=== PATIENT | male | born 1945 | race Caucasian/White ===

== ENCOUNTER → 2023-05-09 10:17 | Outpatient (REF) | payer OTHER, SELFPAY | LOC: HWRAD 10:17 | PROVIDERS: ATTENDING PHYSICIAN Specialist; FAMILY PHYSICIAN Internal Medicine | DX: N20.0 Calculus of kidney (principal) | CPT/HCPCS: 74176 ==

== ENCOUNTER → 2023-11-18 08:15 | Outpatient (REF) | payer OTHER, SELFPAY | LOC: MRI 3T 08:15 | PROVIDERS: ATTENDING PHYSICIAN Specialist; FAMILY PHYSICIAN Internal Medicine | DX: C61 Malignant neoplasm of prostate (principal) | CPT/HCPCS: 72197; A9575 ==

== ENCOUNTER 2024-12-11 06:25 | Day surgery (SDC) | payer OTHER, SELFPAY | END 2024-12-11 13:25 | disposition home or self-care (01) | LOC: GI 06:25 | PROVIDERS: ATTENDING PHYSICIAN Internal Medicine Gastroenterology | DX: C7A.010 Malignant carcinoid tumor of the duodenum (principal); K22.2 Esophageal obstruction; R13.10 Dysphagia, unspecified | CPT/HCPCS: 43249; 43239; 88305; 88341; 88342 ==

== ENCOUNTER → 2024-12-18 15:17 | Outpatient (REF) | payer OTHER, SELFPAY | LOC: RAD 15:17 | PROVIDERS: ATTENDING PHYSICIAN Internal Medicine Gastroenterology; FAMILY PHYSICIAN Internal Medicine | DX: K31.89 Other diseases of stomach and duodenum (principal) | CPT/HCPCS: 74177; Q9967 ==

== ENCOUNTER 2025-03-04 18:49 | Emergency (ER) | payer OTHER, SELFPAY ==
[2025-03-04 18:52] VITALS: BMI 28.4
[2025-03-04 19:10] LABS: Hematocrit 25.9 % (39.0-52.0); Hemoglobin 8.9 g/dL (13.0-18.0); Mean Corp Hgb Conc. 34.4 g/dL (33.0-37.0); Mean Corpuscular Volume 82.5 fL (80.0-94.0); Nucleated Red Blood Cells % 0 % (-); Platelet Count 333 10^3/uL (130-400); Red Cell Dist. Width 14.3 % (11.5-14.5)
[2025-03-04 19:12] VITALS: BP 158/54
[2025-03-04 19:24] LABS: ALT (SGPT) 25 U/L (0-50); AST (SGOT) 22 U/L (17-59); Albumin 2.9 g/dl (3.5-5.0); Alkaline Phosphatase 83 U/L (38-126); Blood Urea Nitrogen 23 mg/dl (9-20); Calcium 8.1 mg/dl (8.4-10.2); Carbon Dioxide 25 mmol/L (22-30); Chloride 99 mmol/L (98-107); Estimated Creatinine Clearance 89 ml/min; Glucose 120 mg/dl (70-99); Potassium 3.9 mmol/L (3.5-5.1); Sodium 127 mmol/L (135-145); Total Protein 5.7 g/dl (6.3-8.2); eGFR > 60.00
--- NOTE | 2025-03-04 19:26 | ED.GENMED ---
History of Present Illness
General
Chief Complaint: Post Operative Problem(s)
Source: patient, records, spouse and family
Exam Limitations: none
Time Seen by Provider: 03/04/25 19:06
Nursing documentation reviewed up to this point in time: agreed with
History of Present Illness
History of Present Illness:
Note:
CHIEF COMPLAINT(S)
Fever
HISTORY OF PRESENT ILLNESS
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 Postoperatively, the patients spouse noticed a fever. The spouse reports that 'everything was
going good' until the fever started. The patient denies experiencing any vomiting, pain, cough, or urinary issues. He also notes that a previous surgical drain has been removed. The patient was discharged on March 01. Currently, the patients
temperature is elevated at 103 degrees Fahrenheit, and he exhibits tachycardia. He remains oriented, able to recognize family members and recall recent events.
PAST MEDICAL AND SURIGICAL HISTORY
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
ADDITIONAL HISTORY OBTAINED FROM SOURCES OTHER THAN THE PATIENT
Per the spouse, the patient developed a fever post-discharge. The spouse attempted to contact the surgeons office multiple times but was unable to reach them and considered driving the patient to the hospital.
PHYSICAL EXAM
General: Alert, no acute distress.
Skin: Warm, dry.
Head: Normocephalic, atraumatic.
Neck: Supple, trachea midline.
Eye, Ears, Nose, Mouth and Throat: Oral mucosa moist.
Cardiovascular: Tachycardia, normal peripheral perfusion, no edema.
Respiratory: Respirations are non-labored.
Gastrointestinal: Abdomen nondistended, vertical midline surgical incision clean, dry, intact, lower quadrant laparotomy incision clean, dry, and intact, healing.
Back: Normal range of motion, normal alignment.
Musculoskeletal: Normal range of motion, normal strength.
Neurological: Alert and oriented to person, place, time, and situation, no focal neurological deficit observed.
Psychiatric: Cooperative, appropriate mood & affect.
PROBLEM LIST
Acute:
- Fever
Chronic:
- Postoperative status following Whipple procedure
PLAN
Check for the source of fever, contact the surgical team at the [facility] for further management guidance.
DIFFERENTIAL DIAGNOSIS
The Differential Diagnosis includes, in no particular order and is not limited to:
- Post-surgical infection
- Atelectasis
- Pneumonia
- Deep vein thrombosis
- Urinary tract infection
- Biliary leak
- Pancreatitis
- Drug-induced fever
- Gastrointestinal tract infection
CARE-UPDATE
03/04/25 - 20:49
Patient has been accepted for transfer to the [facility]. Transfer arrangements are in progress.
Patient to be transferred to [facility] under Dr. Butler's care for further evaluation of postoperative fever. Initial CT scan of abdomen and pelvis completed, awaiting full analysis post-transfer. Negative amylase and lipase levels
reduce the likelihood of an anastomotic leak as the cause of fever.
EKG
My independent EKG interpretation is:
- Rhythm: Sinus tachycardia
- Heart Rate: 105 bpm
- ST Segment: Non-specific ST depression abnormality
- Glen: Normal
- ME Interval: Normal
- QRS Duration: Normal
Disposition:
SUMMARY OF ENCOUNTER
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 The current episode is 10 days post-surgery, with an elevated
temperature of 103 degrees Fahrenheit and tachycardia. In consultation with the oncologic surgery team at the [facility], he was administered piperacillin-tazobactam (20 g per 24 hours) and vancomycin.
DISPOSITION
Transfer to [facility] for further care under their surgical team.
ASSESSMENT
Post-operative fever, status post-Whipple procedure.
MANAGEMENT OF THE PATIENTS CARE WAS DISCUSSED WITH
Management discussed with the oncologic surgery team at the [facility].
PLAN
Transfer to the [facility] for further evaluation and management of post-operative complications including fever.
INDEPENDENT REVIEW OF LABS AND INTERPRETATION OF TESTS
My independent EKG interpretation is Rhythm: Sinus tachycardia, Heart Rate: 105 bpm, ST Segment: Non-specific ST depression abnormality, Glen: Normal, ME Interval: Normal, QRS Duration: Normal.
MEDICATION RECONCILIATION
Administered piperacillin-tazobactam and vancomycin prior to transfer.
MEDICAL DECISION MAKING
Chronic conditions affecting care: Postoperative status following Whipple procedure.
-Complexity of Data Reviewed:
The Differential Diagnosis includes:
- Post-surgical infection
- Atelectasis
- Pneumonia
- Deep vein thrombosis
- Urinary tract infection
- Biliary leak
- Pancreatitis
- Drug-induced fever
- Gastrointestinal tract infection
-Data:
Category 1:
Clinical information was obtained from an independent historian.
Category 3:
Discussion of management with the oncologic surgery team at the [facility].
-Risk:
Prescription medication was administered, including piperacillin-tazobactam and vancomycin.
DIAGNOSIS
Post-operative fever, ICD-10: R50.9
Past History
Past History
ED Past Medical History: CAD and Cancer
ED Past Surgical History: Cardiac and Cholecystectomy
Social History
Tobacco: Former smoker
Alcohol: Occasional
Drug: None
Personal:
Living: with family
Phy Exam
Physical Exam
Physical Exam:
.
Sepsis
Sepsis Screening
Sepsis Assessment: Sepsis
Sepsis Screen
Sepsis Screen: Sepsis
Date: 03/05/25
Time: 00:28
Course
Orders/Labs/Results
Orders:
Orders
03/04/25 18:56
EKG [Electrocardiogram (*1)] Urgent
Reason for Study: Abdominal Pain
EKG- Treatment ONCE
03/04/25 19:01
Amylase Urgent
Comment: ADD ON
Complete Blood Count/With Diff Urgent
Comprehensive Metabolic Panel Urgent
Lactic Acid Urgent
Lipase Urgent
Comment: ADD ON
Blood Culture Q30M
TORIBIO Source: Blood/Venous
Specimen Description:
Blood Culture Q30M
TORIBIO Source: Blood/Venous
Specimen Description:
03/04/25 19:22
Iohexol [Omnipaque] See Protocol PO NOW STA
03/04/25 19:23
CT Abd/pel W Iv And Oral Contr Urgent
Comment:
Reason For Exam: fever, s/p Whipple 10d ago
03/04/25 19:34
Add On- LAB Urgent
Tests Added?: lipase, amylase
03/04/25 19:35
Piperacillin/Tazo 4.5 Gram [Zosyn] 4.5 gram in 100 ml IV NOW
03/04/25 19:37
Lactated Ringers [Lr] 1,000 ml IV BOLUS
03/04/25 19:49
Vancomycin [Vancocin] 2,000 mg 0.9% Sodium Chloride 500 ml [Nss] 500 ml IV NOW
Abnormal Lab Results
03/04/25
19:01
WBC 18.2 H 10^3/uL
(4.8-10.8)
RBC 3.14 L 10^6/uL
(4.70-6.10)
Hgb 8.9 L g/dL
(13.0-18.0)
Hct 25.9 L %
(39.0-52.0)
MPV 10.5 H fL
(7.4-10.4)
Abs Immat Gran (auto) 0.2 H 10^3/uL
(0-0.05)
Absolute Neuts (auto) 16.3 H 10^3/uL
(1.4-6.5)
Absolute Lymphs (auto) 0.6 L 10^3/uL
(1.2-3.4)
Absolute Monos (auto) 1.2 H 10^3/uL
(0.1-0.6)
Immature Gran % 0.8 H %
(0-0.5)
Neutrophils % 89.4 H %
(42.2-75.2)
Lymphocytes % 3.0 L %
(20.5-51.1)
Sodium 127 L mmol/L
(135-145)
BUN 23 H mg/dl
(9-20)
Glucose 120 H mg/dl
(70-99)
Calcium 8.1 L mg/dl
(8.4-10.2)
Total Protein 5.7 L g/dl
(6.3-8.2)
Albumin 2.9 L g/dl
(3.5-5.0)
03/04/25 19:01
03/04/25 19:01
Vital Signs
Initial and Last Documented VS:
Initial Vital Signs
Temp
103 F H
03/04/25 18:52
Last Documented Vital Signs
Temp Pulse Resp BP Pulse Ox
100 F 95 24 141/51 97
03/04/25 21:01 03/04/25 20:30 03/04/25 20:30 03/04/25 20:00 03/04/25 20:30
*Pulse Oximetry
Patient hypoxic: no
*Critical Care Note
Total Time (30-74mins, 75-104mins- exclusive of procedures): 30 (Critical care statement: A total of 30 minutes of critical care time was provided for this patient. This includes management of unstable vital signs, evaluation of the patient at
bedside, reviewing the patient's pertinent medical records, discussion with consultants, review of old EKGs and review of)
ED Attending Note
-
Portions of this chart may have been created with voice recognition software.� Occasional wrong word or��sound alike� substitutions may have occurred due to the inherent limitations of voice recognition software.
Discharge Plan
Departure
Patient Disposition: [facility]
Date of Disposition: 03/04/25
Time of Disposition: 19:35
Patient with high blood pressure during this ER visit?: Yes
Condition: Fair
Discharge Problem:
Postoperative fever
Prescriptions:
No Action
aspirin 81 mg Tablet,Delayed Release (Dr/Ec)
81 mg PO DAILY
metoprolol succinate [Toprol XL] 25 mg Tablet Extended Release 24 Hr
25 mg PO DAILY
rosuvastatin 10 MG tablet
10 mg PO QPM
finasteride 5 MG tablet
5 mg PO DAILY
sennosides [senna] 8.6 mg Tablet
8.6 mg PO BID
amlodipine [Norvasc] 5 mg Tablet
5 mg PO DAILY
acetaminophen [Tylenol Extra Strength] 500 mg Tablet
1,000 mg PO Q6HPRN PRN (Reason: mild pain)
oxycodone 5 mg Tablet
5 mg PO Q6HPRN PRN (Reason: severe pain)
enoxaparin [Lovenox] 40 mg/0.4 mL Syringe
40 mg SC QPM
lubiprostone 24 mcg Capsule
24 mcg PO DAILY
Referrals:
Rashid Magana I., DO [Family Provider, Internal Medicine]
Hospital Transfer
Other hospital: [facility]
I certify that the patient requires transfer: Yes
Discussed case with accepting physician: Carrie
Reason for transfer: higher level of care, availability of service and specialties available
Interventions
Interventions:
*Risk Screen - Suicide Last Done: 03/04/25 18:52
*General Assessment Last Done: 03/04/25 18:52
*Neglect/Abuse Screening Last Done: 03/04/25 18:52
*ED COVID-19 Vaccine History Last Done: 03/04/25 18:52
*ED Influenza Vaccine History Last Done: 03/04/25 18:52
[facility] Fall Risk Assessment Tool Last Done: 03/04/25 18:52
*Nursing Disposition Last Done: 03/04/25 20:55
ED-Skin Assessment Last Done: 03/04/25 18:52
Discharge Date and Time
Discharge Date/Time: 03/04/25 21:12
Print Language: RWANDAN
[2025-03-04] MEDS: OMNIPAQUE 50 ML PO (19:36)
[2025-03-04 19:53] LABS: Amylase 39 U/L (30-110); Lipase 66 U/L (23-300)
[2025-03-04] MEDS: ZOSYN 100 IV (19:56)
[2025-03-04] MEDS: LR 1000 IV (19:56)
[2025-03-04 20:00] VITALS: BP 141/51
== END 2025-03-04 21:12 | disposition short-term general hospital (02) ==
LOC: EMR 18:49
PROVIDERS: Emergency Medicine; EMERGENCY PHYSICIAN Emergency Medicine; FAMILY PHYSICIAN Internal Medicine
DX: R50.82 Postprocedural fever (principal); I25.10 Atherosclerotic heart disease of native coronary artery without angina pectoris; D49.0 Neoplasm of unspecified behavior of digestive system; Z87.891 Personal history of nicotine dependence
CPT/HCPCS: 99284; 96365; 74177; 80053; 82150; 83605; 83690; 85025; 87040; 93005; Q9967

== ENCOUNTER 2025-03-18 19:02 | Emergency (ER) | payer OTHER, SELFPAY ==
[2025-03-18 19:06] VITALS: BP 121/57
[2025-03-18 19:31] LABS: Hematocrit 29.1 % (39.0-52.0); Hemoglobin 9.3 g/dL (13.0-18.0); Mean Corp Hgb Conc. 32.0 g/dL (33.0-37.0); Mean Corpuscular Volume 81.3 fL (80.0-94.0); Nucleated Red Blood Cells % 0 % (-); Platelet Count 393 10^3/uL (130-400); Red Cell Dist. Width 14.5 % (11.5-14.5)
[2025-03-18 19:55] LABS: ALT (SGPT) 57 U/L (0-50); AST (SGOT) 34 U/L (17-59); Albumin 3.7 g/dl (3.5-5.0); Alkaline Phosphatase 164 U/L (38-126); Blood Urea Nitrogen 17 mg/dl (9-20); Calcium 9.1 mg/dl (8.4-10.2); Carbon Dioxide 24 mmol/L (22-30); Chloride 98 mmol/L (98-107); Glucose 130 mg/dl (70-99); Potassium 4.3 mmol/L (3.5-5.1); Sodium 131 mmol/L (135-145); Total Protein 7.4 g/dl (6.3-8.2); eGFR > 60.00
[2025-03-18 19:58] LABS: COVID-19 Antigen Negative (Negative)
--- NOTE | 2025-03-18 20:19 | ED.GENMED ---
History of Present Illness
<LUISA Sutton - Last Filed: 03/19/25 08:48>
General
Chief Complaint: Fever
Source: patient
Exam Limitations: none
Time Seen by Provider: 03/18/25 19:57
Nursing documentation reviewed up to this point in time: agreed with
History of Present Illness
History of Present Illness:
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 Patient was seen here March 04 for fever and transferred to [place]. Daughter at bedside reports patient had a full workup and no clear cause of fever was
found. He was on IV antibiotics while in the hospital at [facility] and was discharged on Augmentin. He completed Augmentin on 4 days ago. Patient felt fine earlier today and in fact saw his oncologist Dr. Barnes however around 2 PM daughter
reports patient developed rigors and his temp was 101.8. Daughter gave patient Tylenol at 430 and ibuprofen at 5:30.
She did speak with patient's surgeon Dr. Aubrey Curtis and he recommended that he come here to the ER and also get a CAT scan again with IV contrast.
Patient currently denies any fevers. With his fever he denies any URI symptoms cough nausea vomiting diarrhea. He denies abdominal pain.
Past History
<Rosa Delgado MD - Last Filed: >
Past History
ED Past Medical History: CAD and Cancer
ED Past Surgical History: Cardiac and Cholecystectomy
Social History
Tobacco: Former smoker
Alcohol: Occasional
Drug: None
Personal:
Living: with family
Phy Exam
<LUISA Sutton - Last Filed: 03/19/25 08:48>
General Physical Exam
General Presentation: no apparent distress
General age: appears stated age
General Skin: warm and dry
General Habitus: elderly
General Mental: alert
General Hydration: appears well hydrated
Cardiovascular Exam
Cardiovascular Exam: regular rate/rhythm, no murmur and normal peripheral pulses
Pulmonary Exam
Pulmonary Exam: lungs clear and no respiratory distress
Gastrointestinal Exam
Gastrointestinal Exam: non tender, soft and other (Surgical site healing well without evidence of infection)
Neurological Exam
Neurological Exam: alert and oriented x3
Musculoskeletal Exam
Musculoskeletal Exam: full ROM
Skin Exam
Skin Exam: normal color and warm/dry
Psychiatric Exam
Psychiatric Exam: normal mood/affect
<Harmony St PA-C - Last Filed: 03/19/25 02:41>
Physical Exam
Physical Exam:
.
Sepsis
<LUISA Sutton - Last Filed: 03/19/25 08:48>
Sepsis Screen
Sepsis Screen: Sepsis Ruled Out
Date: 03/19/25
Time: 08:43
<[address] PA-C - Last Filed: 03/19/25 02:41>
Sepsis Screening
Sepsis Assessment: Sepsis Ruled Out
Sepsis Screen
Sepsis Screen: Sepsis Ruled Out
Date: 03/19/25
Time: 02:41
<Rosa Delgado MD - Last Filed: >
Sepsis Screen
Sepsis Screen: Possible Sepsis
Date: 03/18/25
Time: 20:19
Course
<LUISA Sutton - Last Filed: 03/19/25 08:48>
Orders/Labs/Results
Orders:
Orders
03/18/25 19:21
COVID-19 Antigen Urgent
Source: Nasal Swab
Complete Blood Count/With Diff Urgent
Comprehensive Metabolic Panel Urgent
Blood Culture Urgent
TORIBIO Source: Blood/Venous
Specimen Description:
Influenza A+B Rapid Molecular Urgent
TORIBIO Source: Nasal Swab
Specimen Description:
03/18/25 21:06
CT Abd/pelvis W Iv Cont Urgent
Comment:
Reason For Exam: fever s/p whipple
03/18/25 22:30
Blood Culture Q30M
TORIBIO Source: Blood/Venous
Specimen Description:
03/18/25 23:11
Lactic Acid Q4H
Comment: CANCEL 2nd LACTIC ACID IF 1st LACTIC ACID IS LESS THAN 2
UA Reflex to Culture [Urinalysis Reflex To Culture] Urgent
Date Specimen was Collected: 03/18/25
Time Specimen was Collected: 23:08
Urine Microscopic Reflex Cult Urgent
Blood Culture Q30M
TORIBIO Source: Blood/Venous
Specimen Description:
Urine Culture Urgent
TORIBIO Source: U
Specimen Description:
Date Specimen was Collected: 03/18/25
Time Specimen was Collected: 23:08
03/19/25 00:43
Cefuroxime Axetil [Ceftin] 500 mg PO NOW STA
Abnormal Lab Results
03/18/25 03/18/25
19:21 23:11
RBC 3.58 L 10^6/uL
(4.70-6.10)
Hgb 9.3 L g/dL
(13.0-18.0)
Hct 29.1 L %
(39.0-52.0)
MCH 26.0 L pg
(27.0-31.0)
MCHC 32.0 L g/dL
(33.0-37.0)
Abs Immat Gran (auto) 0.1 H 10^3/uL
(0-0.05)
Absolute Neuts (auto) 8.6 H 10^3/uL
(1.4-6.5)
Absolute Lymphs (auto) 0.7 L 10^3/uL
(1.2-3.4)
Immature Gran % 0.6 H %
(0-0.5)
Neutrophils % 86.8 H %
(42.2-75.2)
Lymphocytes % 6.9 L %
(20.5-51.1)
Sodium 131 L mmol/L
(135-145)
Glucose 130 H mg/dl
(70-99)
ALT 57 H U/L
(0-50)
Alkaline Phosphatase 164 H U/L
(38-126)
Leukocyte Esterase Rfl 1+ A
(Negative)
Urine WBC (Reflex) 16-20 A /HPF
(0-5)
Urine Bacteria (Reflex) Moderate A
(Negative)
Urine Albumin (Reflex) 2+ A
(Neg - Trace)
03/18/25 19:21
03/18/25 19:21
Vital Signs
Initial and Last Documented VS:
Initial Vital Signs
Temp Pulse Resp BP Pulse Ox
98.9 F 97 16 121/57 96
03/18/25 19:06 03/18/25 19:06 03/18/25 19:06 03/18/25 19:06 03/18/25 19:06
Last Documented Vital Signs
Temp Pulse Resp BP Pulse Ox
98 F 78 22 121/54 96
03/19/25 00:04 03/19/25 00:30 03/19/25 00:30 03/19/25 00:00 03/19/25 00:15
<H[address]ony St PA-C - Last Filed: 03/19/25 02:41>
Orders/Labs/Results
Orders:
Orders
03/18/25 19:21
COVID-19 Antigen Urgent
Source: Nasal Swab
Complete Blood Count/With Diff Urgent
Comprehensive Metabolic Panel Urgent
Blood Culture Urgent
TORIBIO Source: Blood/Venous
Specimen Description:
Influenza A+B Rapid Molecular Urgent
TORIBIO Source: Nasal Swab
Specimen Description:
03/18/25 21:06
CT Abd/pelvis W Iv Cont Urgent
Comment:
Reason For Exam: fever s/p whipple
03/18/25 22:30
Blood Culture Q30M
TORIBIO Source: Blood/Venous
Specimen Description:
03/18/25 23:11
Lactic Acid Q4H
Comment: CANCEL 2nd LACTIC ACID IF 1st LACTIC ACID IS LESS THAN 2
UA Reflex to Culture [Urinalysis Reflex To Culture] Urgent
Date Specimen was Collected: 03/18/25
Time Specimen was Collected: 23:08
Urine Microscopic Reflex Cult Urgent
Blood Culture Q30M
TORIBIO Source: Blood/Venous
Specimen Description:
Urine Culture Urgent
TORIBIO Source: U
Specimen Description:
Date Specimen was Collected: 03/18/25
Time Specimen was Collected: 23:08
03/19/25 00:43
Cefuroxime Axetil [Ceftin] 500 mg PO NOW STA
Abnormal Lab Results
03/18/25 03/18/25
19:21 23:11
RBC 3.58 L 10^6/uL
(4.70-6.10)
Hgb 9.3 L g/dL
(13.0-18.0)
Hct 29.1 L %
(39.0-52.0)
MCH 26.0 L pg
(27.0-31.0)
MCHC 32.0 L g/dL
(33.0-37.0)
Abs Immat Gran (auto) 0.1 H 10^3/uL
(0-0.05)
Absolute Neuts (auto) 8.6 H 10^3/uL
(1.4-6.5)
Absolute Lymphs (auto) 0.7 L 10^3/uL
(1.2-3.4)
Immature Gran % 0.6 H %
(0-0.5)
Neutrophils % 86.8 H %
(42.2-75.2)
Lymphocytes % 6.9 L %
(20.5-51.1)
Sodium 131 L mmol/L
(135-145)
Glucose 130 H mg/dl
(70-99)
ALT 57 H U/L
(0-50)
Alkaline Phosphatase 164 H U/L
(38-126)
Leukocyte Esterase Rfl 1+ A
(Negative)
Urine WBC (Reflex) 16-20 A /HPF
(0-5)
Urine Bacteria (Reflex) Moderate A
(Negative)
Urine Albumin (Reflex) 2+ A
(Neg - Trace)
03/18/25 19:21
03/18/25 19:21
Vital Signs
Initial and Last Documented VS:
Initial Vital Signs
Temp Pulse Resp BP Pulse Ox
98.9 F 97 16 121/57 96
03/18/25 19:06 03/18/25 19:06 03/18/25 19:06 03/18/25 19:06 03/18/25 19:06
Last Documented Vital Signs
Temp Pulse Resp BP Pulse Ox
98 F 78 22 121/54 96
03/19/25 00:04 03/19/25 00:30 03/19/25 00:30 03/19/25 00:00 03/19/25 00:15
<Rosa Delgado MD - Last Filed: >
Orders/Labs/Results
Orders:
Orders
03/18/25 19:21
COVID-19 Antigen Urgent
Source: Nasal Swab
Complete Blood Count/With Diff Urgent
Comprehensive Metabolic Panel Urgent
Blood Culture Urgent
TORIBIO Source: Blood/Venous
Specimen Description:
Influenza A+B Rapid Molecular Urgent
TORIBIO Source: Nasal Swab
Specimen Description:
03/18/25 21:06
CT Abd/pelvis W Iv Cont Urgent
Comment:
Reason For Exam: fever s/p ipple
03/18/25 22:30
Blood Culture Q30M
TORIBIO Source: Blood/Venous
Specimen Description:
03/18/25 23:11
Lactic Acid Q4H
Comment: CANCEL 2nd LACTIC ACID IF 1st LACTIC ACID IS LESS THAN 2
UA Reflex to Culture [Urinalysis Reflex To Culture] Urgent
Date Specimen was Collected: 03/18/25
Time Specimen was Collected: 23:08
Urine Microscopic Reflex Cult Urgent
Blood Culture Q30M
TORIBIO Source: Blood/Venous
Specimen Description:
Urine Culture Urgent
TORIBIO Source: U
Specimen Description:
Date Specimen was Collected: 03/18/25
Time Specimen was Collected: 23:08
03/19/25 00:43
Cefuroxime Axetil [Ceftin] 500 mg PO NOW STA
Abnormal Lab Results
03/18/25 03/18/25
19:21 23:11
RBC 3.58 L 10^6/uL
(4.70-6.10)
Hgb 9.3 L g/dL
(13.0-18.0)
Hct 29.1 L %
(39.0-52.0)
MCH 26.0 L pg
(27.0-31.0)
MCHC 32.0 L g/dL
(33.0-37.0)
Abs Immat Gran (auto) 0.1 H 10^3/uL
(0-0.05)
Absolute Neuts (auto) 8.6 H 10^3/uL
(1.4-6.5)
Absolute Lymphs (auto) 0.7 L 10^3/uL
(1.2-3.4)
Immature Gran % 0.6 H %
(0-0.5)
Neutrophils % 86.8 H %
(42.2-75.2)
Lymphocytes % 6.9 L %
(20.5-51.1)
Sodium 131 L mmol/L
(135-145)
Glucose 130 H mg/dl
(70-99)
ALT 57 H U/L
(0-50)
Alkaline Phosphatase 164 H U/L
(38-126)
Leukocyte Esterase Rfl 1+ A
(Negative)
Urine WBC (Reflex) 16-20 A /HPF
(0-5)
Urine Bacteria (Reflex) Moderate A
(Negative)
Urine Albumin (Reflex) 2+ A
(Neg - Trace)
03/18/25 19:21
03/18/25 19:21
Vital Signs
Initial and Last Documented VS:
Initial Vital Signs
Temp Pulse Resp BP Pulse Ox
98.9 F 97 16 121/57 96
03/18/25 19:06 03/18/25 19:06 03/18/25 19:06 03/18/25 19:06 03/18/25 19:06
Last Documented Vital Signs
Temp Pulse Resp BP Pulse Ox
98 F 78 22 121/54 96
03/19/25 00:04 03/19/25 00:30 03/19/25 00:30 03/19/25 00:00 03/19/25 00:15
<LUISA Sutton - Last Filed: 03/19/25 08:48>
MDM/Problems Addressed
MDM/Problems Addressed:
As documented patient is a 80-year-old male status post [place] at [place] presented with fever.
Patient presented here previously March 04 with fever at that time transferred to [place] he was hospitalized and given antibiotics however no source of fever was identified. Patient presented back today with fever of 101.8 prior to arrival. He
was given Tylenol and ibuprofen and did arrive afebrile here. Again he has no complaints of runny nose cough nausea vomiting.
No abdominal pain surgical site is well-appearing abdomen soft nontender white count is normal at 9.9 hemoglobin 9.3 which is improved from March 04 normal renal function. At this time lactic and blood cultures are pending.
alk phos is minimally elevated and ALT is minimally elevated
CAT scan with IV contrast pending at this time. case transferred to [facility], [facility]
<LUISA Sutton - Last Filed: 03/19/25 08:48>
*Radiology
Radiology exam reviewed: radiology read reviewed
<Harmony [facility] PA-C - Last Filed: 03/19/25 02:41>
*Pulse Oximetry
Patient hypoxic: no
*Critical Care Note
Total Time (30-74mins, 75-104mins- exclusive of procedures): Not Applicable
<Rosa Delgado MD - Last Filed: >
*Pulse Oximetry
SaO2: 96
Oxygen Mode of Delivery: Room air
<Harmony [facility] PA-C - Last Filed: 03/19/25 02:41>
Update Note
Update Note:
Update: Received patient in signout pending CT scan. CT scan notes persistent stranding in the right upper quadrant without acute changes as well as mild circumferential urinary bladder wall thickening. UA somewhat equivocal for infection with 1+
leukocyte esterase, 16�20 WBC, and moderate bacteria. However, 6�10 squamous cells noted as well suggesting potential contamination. Of note - patient does not have any urinary symptoms. Otherwise patient's lab work is unremarkable here. He has
a stable anemia and very mild elevation in ALT and alkaline phosphatase. Patient has remained afebrile with stable vital signs. He feels well and denies any rigors. No evidence of acute infection here in the emergency department.
I did call and discussed with patient's surgical oncology team at [facility], Dr. Butler. After lengthy discussion and review of laboratory findings/CT scan�she does not see any indication for transfer or admission at this time. Blood cultures were
sent and are pending. As recommended by [facility] oncology�Will treat patient for possible UTI pending culture. Patient will follow-up with surgical oncology in a few days down at [facility]. Very strict return precautions were discussed. Patient and
patient's family are comfortable with this plan and stable for discharge home.
ED Attending Note
<Rosa Delgado MD - Last Filed: >
-
Portions of this chart may have been created with voice recognition software.� Occasional wrong word or��sound alike� substitutions may have occurred due to the inherent limitations of voice recognition software.
Discharge Plan
Departure
Patient Disposition: Home (Routine Discharge)
Date of Disposition: 03/19/25
Time of Disposition: 00:43
Patient with high blood pressure during this ER visit?: No
Condition: Good
Covid-19: Negative COVID-19
Discharge Problem:
Fever, UTI (urinary tract infection)
Instructions: Urinary tract infection in adults - ED (DC), BLOOD PRESSURE
Prescriptions:
New
cefuroxime axetil 500 mg tablet
500 mg PO BID 7 Days Qty: 14 0RF
No Action
aspirin 81 mg Tablet,Delayed Release (Dr/Ec)
81 mg PO DAILY
metoprolol succinate [Toprol XL] 25 mg Tablet Extended Release 24 Hr
25 mg PO DAILY
rosuvastatin 10 MG tablet
10 mg PO QPM
finasteride 5 MG tablet
5 mg PO DAILY
sennosides [senna] 8.6 mg Tablet
8.6 mg PO BID
amlodipine [Norvasc] 5 mg Tablet
5 mg PO DAILY
acetaminophen [Tylenol Extra Strength] 500 mg Tablet
1,000 mg PO Q6HPRN PRN (Reason: mild pain)
oxycodone 5 mg Tablet
5 mg PO Q6HPRN PRN (Reason: severe pain)
enoxaparin [Lovenox] 40 mg/0.4 mL Syringe
40 mg SC QPM
lubiprostone 24 mcg Capsule
24 mcg PO DAILY
Referrals:
NONE,* [Active, Internal Medicine]
Aubrey Curtis MD [Non-Admitting Privileges, Surgical] - Follow up in 2-3 days
Activity Restrictions/Additional Instructions:
RETURN TO THE EMERGENCY DEPARTMENT ANY PERSISTENT FEVER OR CHILLS, INTRACTABLE NAUSEA/VOMITING, ABDOMINAL PAIN, SIGNS OF SEVERE DEHYDRATION, PRODUCTIVE COUGH, SIGNIFICANT WEAKNESS, OR ANY OTHER CONCERNS
- As discussed your lab work showed no acute abnormalities today in the emergency department. We did not find an obvious source of your fever other than a possible UTI. After discussion with your surgery team�we will plan to treat you for a UTI
pending urine culture. Please take antibiotics twice daily for the next week.
- We will contact you if your blood cultures are positive
- it is important to stay well-hydrated. Continue to take all other medications as prescribed
- Follow-up with your surgical oncologist in a few days for further evaluation/management
Monitor your symptoms closely and return to the emergency department with any acute worsening/new symptoms or any other concerns
Interventions
Interventions:
*General Assessment Last Done: 03/18/25 20:34
*Neglect/Abuse Screening Last Done: 03/18/25 20:34
*ED COVID-19 Vaccine History Last Done: 03/18/25 20:34
*ED Influenza Vaccine History Last Done: 03/18/25 20:34
[facility] Fall Risk Assessment Tool Last Done: 03/18/25 20:40
*Risk Screen - Suicide (C-SSRS) Last Done: 03/18/25 19:06
*Nursing Disposition Last Done: 03/19/25 01:22
ED- Neurological Assessment Last Done: 03/18/25 20:36
ED-Skin Assessment Last Done: 03/18/25 20:36
Discharge Date and Time
Discharge Date/Time: 03/19/25 01:23
Print Language: NORWEGIAN
[2025-03-18 20:28] VITALS: BP 125/55
[2025-03-18 21:00] VITALS: BP 122/57
[2025-03-18 22:01] VITALS: BP 122/59
[2025-03-18 23:00] VITALS: BP 121/52
[2025-03-18 23:19] LABS: Urine Character Clear (Clear)
[2025-03-18 23:24] LABS: Urine Red Blood Cell 0-2 /HPF (0-2); Urine White Cell 16-20 /HPF (0-5)
[2025-03-19] VITALS: BP 121/54
[2025-03-19] MEDS: CEFTIN 500 MG PO (01:05)
== END 2025-03-19 01:23 | disposition home or self-care (01) ==
LOC: EMR 19:02
PROVIDERS: Emergency Medicine; Nurse Practitioner; EMERGENCY PHYSICIAN Emergency Medicine; FAMILY PHYSICIAN Internal Medicine
DX: R50.9 Fever, unspecified (principal); N39.0 Urinary tract infection, site not specified; I25.10 Atherosclerotic heart disease of native coronary artery without angina pectoris; D64.9 Anemia, unspecified; Z87.891 Personal history of nicotine dependence; Z90.411 Acquired partial absence of pancreas; Z90.49 Acquired absence of other specified parts of digestive tract
CPT/HCPCS: 99284; 74177; 80053; 81003; 81015; 83605; 85025; 87040; 87086; 87502; 87811; Q9967